=== PATIENT | male | born 1970 | race Caucasian/White ===

== ENCOUNTER 2024-01-22 21:06 | Emergency (ER) | payer OTHER, SELFPAY ==
[2024-01-22 21:11] VITALS: BP 151/100
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
== END 2024-01-22 22:38 | disposition home or self-care (01) ==
LOC: EMR 21:06
PROVIDERS: EMERGENCY PHYSICIAN Emergency Medicine; FAMILY PHYSICIAN Family Medicine
DX: S86.112A Strain of other muscle(s) and tendon(s) of posterior muscle group at lower leg level, left leg, initial encounter (principal); X50.1XXA Overexertion from prolonged static or awkward postures, initial encounter
CPT/HCPCS: 99282

== ENCOUNTER 2024-07-30 12:58 | Emergency (ER) | payer SELFPAY ==
[2024-07-30 13:03] VITALS: BP 144/94
[2024-07-30 13:21] LABS: % Basophils 0.7 % (0-2); % Eosinophils 1.6 % (0-6); % Immature Granulocytes 0.2 % (0-0.5); % Lymphocytes 35.5 % (20.5-51.1); % Monocytes 10.9 % (1.7-9.3); % Neutrophils 51.1 % (42.2-75.2); Absolute Eosinophils 0.1 10^3/uL (0-0.7); Absolute Monocytes 0.6 10^3/uL (0.1-0.6); Absolute Neutrophils 2.9 10^3/uL (1.4-6.5); Hematocrit 43.4 % (39.0-52.0); Hemoglobin 14.5 g/dL (13.0-18.0); Mean Corp Hgb Conc. 33.4 g/dL (33.0-37.0); Mean Corpuscular Volume 92.7 fL (80.0-94.0); Mean Platelet Volume 10.5 fL (7.4-10.4); Nucleated Red Blood Cells % 0 % (-); Platelet Count 248 10^3/uL (130-400); Red Blood Cell Count 4.68 10^6/uL (4.70-6.10); Red Cell Dist. Width 13.1 % (11.5-14.5); White Blood Cell Count 5.6 10^3/uL (4.8-10.8)
[2024-07-30 13:39] LABS: ALT (SGPT) 50 U/L (0-50); AST (SGOT) 41 U/L (17-59); Albumin 4.5 g/dl (3.5-5.0); Alkaline Phosphatase 91 U/L (38-126); Blood Urea Nitrogen 21 mg/dl (9-20); Calcium 9.6 mg/dl (8.4-10.2); Carbon Dioxide 30 mmol/L (22-30); Chloride 103 mmol/L (98-107); Glucose 107 mg/dl (70-99); Lipase 81 U/L (23-300); Potassium 4.6 mmol/L (3.5-5.1); Sodium 141 mmol/L (135-145); Total Bilirubin 0.7 mg/dl (0.2-1.3); Total Protein 7.2 g/dl (6.3-8.2); eGFR > 60.00
[2024-07-30 14:18] VITALS: BMI 36.6
--- NOTE | 2024-07-30 15:33 | ED.GENMED ---
History of Present Illness
<Cecy Solis MD, Resident - Last Filed: 07/30/24 15:46>
General
Chief Complaint: Abdominal Symptoms
Time Seen by Provider: 07/30/24 15:05
History of Present Illness
History of Present Illness:
54-year-old otherwise healthy male presenting to the ED with abdominal pain. Patient notes pain started on Thursday and was located in the left upper quadrant, did not radiate and was constant throughout the day. Pain started migrating toward the
left lower quadrant over the next days. Patient was taking ibuprofen which helped relieve the pain. Also notes defecation relieves the pain. Patient has had pain during his recent travel to [place]. This morning patient had pain in the right
flank that radiates to his back. Unlike previous episodes of pain, today pain is intermittent. Denies nausea, vomiting, melena, hematochezia, fever, chest pain. Describes a flushing sensation in his head over the past week and loss of appetite.
Patient also notes change in urine odor without any frequency, urgency, burning. Denies any sick contacts. His last colonoscopy was 5 years ago which showed diverticulosis.
Past History
<Cecy Solis MD, Resident - Last Filed: 07/30/24 15:46>
Past History
ED Past Medical History: Negative Asthma, CAD, Cancer, CHF, COPD, CVA or [place]
ED Past Surgical History: Orthopedic (Bilateral hip replacement); Negative Cardiac
Social History
Tobacco: Non-smoker
Alcohol: None
Drug: None
Personal:
Living: with family
Employment: Employed
Family History
Family History: Negative Early CAD, CAD or Sudden
Review of Systems
<Cecy Solis MD, Resident - Last Filed: 07/30/24 15:46>
Review of Systems
Constitutional: Reports no symptoms
EENT: Reports no symptoms
Respiratory: Reports no symptoms
Cardiac: Reports no symptoms
ABD/GI: Reports abdominal pain
: Reports other (Change in urine odor)
Musculoskeletal: Reports no symptoms
Skin: Reports no symptoms
Neurological: Reports no symptoms
Endocrine: Reports no symptoms
Hematologic/Lymphatic: Reports no symptoms
Psychiatric: Reports no symptoms
Phy Exam
<Cecy Solis MD, Resident - Last Filed: 07/30/24 15:46>
Physical Exam
Physical Exam:
GENERAL: Alert, in no apparent distress
EYE: pupils equal and reactive
NECK: Supple, no significant adenopathy.
ENT: o/p clr, mmm.
CARDIAC: Regular rate and rhythm.
LUNGS: Clear breath sounds bilaterally, no acute respiratory distress, no wheezes/rales/rhonchi
ABDOMEN: Soft, without focal tenderness, no r/g, no cvat.
NEUROLOGICAL: Alert and oriented, no focal neuro deficits
SKIN: Warm and dry, skin intact.
MUSCULOSKELETAL: No edema, well perfused.
PSYCH: Normal and appropriate interaction.
Course
<Cecy Solis MD, Resident - Last Filed: 07/30/24 15:46>
Orders/Labs/Results
Orders:
Orders
07/30/24 13:08
Complete Blood Count/With Diff Urgent
Comprehensive Metabolic Panel Urgent
Lipase Urgent
07/30/24 15:37
CT Abd/pelvis W Iv Cont Urgent
Comment:
Reason For Exam: migrating abd pain
Urinalysis Reflex To Culture Urgent
Abnormal Lab Results
07/30/24
13:08
RBC 4.68 L 10^6/uL
(4.70-6.10)
MPV 10.5 H fL
(7.4-10.4)
Monocytes % 10.9 H %
(1.7-9.3)
BUN 21 H mg/dl
(9-20)
Glucose 107 H mg/dl
(70-99)
07/30/24 13:08
07/30/24 13:08
Vital Signs
Initial and Last Documented VS:
Initial Vital Signs
Temp Pulse Resp BP Pulse Ox
97.7 F 83 16 144/94 98
07/30/24 13:03 07/30/24 13:03 07/30/24 13:03 07/30/24 13:03 07/30/24 13:03
Last Documented Vital Signs
Temp Pulse Resp BP Pulse Ox
97.7 F 83 16 144/94 98
07/30/24 13:03 07/30/24 13:03 07/30/24 13:03 07/30/24 13:03 07/30/24 13:03
<Cortney Ramirez MD - Last Filed: 07/30/24 15:38>
Orders/Labs/Results
Orders:
Orders
07/30/24 13:08
Complete Blood Count/With Diff Urgent
Comprehensive Metabolic Panel Urgent
Lipase Urgent
07/30/24 15:37
CT Abd/pelvis W Iv Cont Urgent
Comment:
Reason For Exam: migrating abd pain
Urinalysis Reflex To Culture Urgent
Abnormal Lab Results
07/30/24
13:08
RBC 4.68 L 10^6/uL
(4.70-6.10)
MPV 10.5 H fL
(7.4-10.4)
Monocytes % 10.9 H %
(1.7-9.3)
BUN 21 H mg/dl
(9-20)
Glucose 107 H mg/dl
(70-99)
07/30/24 13:08
07/30/24 13:08
Vital Signs
Initial and Last Documented VS:
Initial Vital Signs
Temp Pulse Resp BP Pulse Ox
97.7 F 83 16 144/94 98
07/30/24 13:03 07/30/24 13:03 07/30/24 13:03 07/30/24 13:03 07/30/24 13:03
Last Documented Vital Signs
Temp Pulse Resp BP Pulse Ox
97.7 F 83 16 144/94 98
07/30/24 13:03 07/30/24 13:03 07/30/24 13:03 07/30/24 13:03 07/30/24 13:03
<Cecy Solis MD, Resident - Last Filed: 07/30/24 15:46>
MDM/Problems Addressed
Differential Diagnosis Includes:
Diverticulitis
Nephrolithiasis
Biliary colic/cholelithiasis
Pancreatitis
AAA
MDM/Problems Addressed:
- CBC, CMP
- Urinalysis
- Ct abd/pelvis with IV contrast
<Cecy Solis MD, Resident - Last Filed: 07/30/24 15:46>
*Critical Care Note
Total Time (30-74mins, 75-104mins- exclusive of procedures): Not Applicable
ED Attending Note
<Cecy Solis MD, Resident - Last Filed: 07/30/24 15:46>
-
Portions of this chart may have been created with voice recognition software.� Occasional wrong word or��sound alike� substitutions may have occurred due to the inherent limitations of voice recognition software.
<Cortney Ramirez MD - Last Filed: 07/30/24 15:38>
ED Attending Note
Patient seen and examined by attending physician: Yes
I performed a history and physical exam of patient and discussed management with resident, I reviewed resident's note and agree with documented findings and plan of care.: Yes
ED Attending Note:
Patient appears well and comfortable. Abdomen is mildly distended. Patient has mild lower mid abdominal tenderness, right lower quadrant tenderness on exam. He has no rebound or guarding. There is no pulsatile mass. Awaiting urinalysis and CT
with IV contrast
Discharge Plan
Departure
Prescriptions:
No Action
No Current Medications
Referrals:
Jensen Maddox DO [Family Provider] -
Interventions
Interventions:
*Risk Screen - Suicide Last Done: 07/30/24 13:05
*General Assessment Last Done: 07/30/24 14:18
*Neglect/Abuse Screening Last Done: 07/30/24 13:05
ED- Fall Risk Assessment Last Done: 07/30/24 14:18
*ED COVID-19 Vaccine History Last Done: 07/30/24 14:18
WQ-[id number]-[id number] Assessment Last Done: 07/30/24 14:18
Discharge Date and Time
Print Language: [id number]
[2024-07-30 16:03] LABS: Urine Albumin Negative (Neg - Trace); Urine Bilirubin Negative (Negative); Urine Character Clear (Clear); Urine Color Yellow; Urine Glucose Negative (Negative); Urine Ketone Negative (Negative); Urine Leukocyte Negative (Negative); Urine Nitrite Negative (Negative); Urine Occult Blood Negative (Negative); Urine Specific Gravity 1.025 (<1.030); Urine Urobilinogen Negative (Neg - 1+)
[2024-07-30 18:27] VITALS: BP 145/90
== END 2024-07-30 18:29 | disposition home or self-care (01) ==
LOC: EMR 12:58
PROVIDERS: Emergency Medicine; EMERGENCY PHYSICIAN Emergency Medicine; FAMILY PHYSICIAN Family Medicine
DX: R10.9 Unspecified abdominal pain (principal); R10.813 Right lower quadrant abdominal tenderness; Z87.19 Personal history of other diseases of the digestive system
CPT/HCPCS: 99284; 74177; 80053; 81003; 83690; 85025; Q9967

== ENCOUNTER → 2025-07-19 16:19 | Outpatient (REF) | payer OTHER, SELFPAY | LOC: RAD 16:19 | PROVIDERS: ATTENDING PHYSICIAN Nurse Practitioner Family; FAMILY PHYSICIAN Family Medicine | DX: K86.2 Cyst of pancreas (principal) | CPT/HCPCS: 74178; Q9967 ==